=== PATIENT | male | born 1950 | race Caucasian/White ===

== ENCOUNTER 2021-05-15 08:10 | Inpatient (IN) ==
[2021-05-15] MEDS ORDERED: Heparin DRIP 25,000 UNITS BAG 25,000 UNITS/500 ML BAG ONE (08:31)
[2021-05-15] MEDS: Heparin DRIP 25,000 UNITS BAG 25,000 UNITS/500 ML BAG IV SCH (08:35)
[2021-05-15] MEDS ORDERED: Heparin 5000 UNITS/ML 1 mL VIAL IV SCH (09:00)
[2021-05-15 09:08] LABS: ABS Basophils 0.1 10^3/ul (0-0.2); ABS Lymphocytes 0.8 10^3/ul (1.0-4.8); ABS Monocytes 1.3 10^3/ul (0-0.8); ABS Neutrophils 9.1 10^3/ul (1.5-7.7); Eosinophil % 0.1 %; Hematocrit 37 % (42-52); Hemoglobin 12.4 g/dL (14.0-18.0); Lymphocyte % 7.3 %; Mean Corpuscular HGB Conc 33 g/dL (31-36); Mean Corpuscular Hemoglobin 29 pg (27-31); Mean Corpuscular Volume 86 fL (80-94); Mean Platelet Volume 7.4 fL (7.4-10.4); Platelet Count 232 10^3/uL (150-450); Red Cell Distribution Width 14 % (10-15); White Blood Count 11.3 10^3/uL (3.5-10.8)
[2021-05-15 09:23] LABS: Anion Gap 7 mmol/L (2-11); Blood Urea Nitrogen 19 mg/dL (6-24); CO2 Carbon Dioxide 24 mmol/L (22-32); Calcium 8.2 mg/dL (8.6-10.3); Chloride 101 mmol/L (101-111); EGFR African American 73.1 (>60); EGFR Non-African American 60.4 (>60); Glucose 134 mg/dL (70-100); Potassium 4.1 mmol/L (3.5-5.0); Sodium 132 mmol/L (135-145)
[2021-05-15 09:47] LABS: Activated Partial Thrombo Time 82.9 seconds (26.0-38.0); INR 1.35 (0.86-1.15)
[2021-05-15 09:52] LABS: Troponin I 0.01 ng/mL (<0.03)
[2021-05-15] MEDS ORDERED: Al Hydrox/Mg Hydrox/Simet LIQ 30 ML UDC PO PRN (10:15)
[2021-05-15] MEDS ORDERED: Ondansetron 4 mg VIAL 2 MG/ML 2 ml VIAL IV PRN (10:15)
[2021-05-15 10:16] LABS: C Reactive Protein 103.27 mg/L (<8.01)
[2021-05-15] MEDS ORDERED: Digoxin IV 0.5 MG/2 ML AMP (0.25 MG/ML) IV SLOW PU ONE (10:25)
[2021-05-15 11:25] LABS: TSH Ultra Thyroid Stim Horm 0.35 mcIU/mL (0.34-5.60)
[2021-05-15 12:50] LABS: Erythrocyte Sed Rate 25 mm/Hr (0-19)
[2021-05-15 13:28] LABS: % Iron Saturation 12 % (15-55); Iron 30 ug/dL (50-212); Total Iron Binding Capacity 248 mcg/dL (250-450); Transferrin 177 mg/dL (203-362); Unsaturated Iron Binding < 233 ug/dL
[2021-05-16 04:19] LABS: ABS Basophils 0.1 10^3/ul (0-0.2); ABS Eosinophils 0.2 10^3/ul (0-0.6); ABS Lymphocytes 1.1 10^3/ul (1.0-4.8); ABS Neutrophils 5.3 10^3/ul (1.5-7.7); Eosinophil % 2.8 %; Hematocrit 35 % (42-52); Lymphocyte % 13.9 %; Mean Corpuscular HGB Conc 34 g/dL (31-36); Mean Corpuscular Hemoglobin 29 pg (27-31); Mean Corpuscular Volume 85 fL (80-94); Mean Platelet Volume 7.3 fL (7.4-10.4); Platelet Count 217 10^3/uL (150-450); Red Blood Count 4.14 10^6 /uL (4.18-5.48); Red Cell Distribution Width 14 % (10-15); White Blood Count 7.6 10^3/uL (3.5-10.8)
[2021-05-16 04:40] LABS: Calcium 8.4 mg/dL (8.6-10.3); EGFR African American 78.4 (>60); EGFR Non-African American 64.8 (>60); Potassium 3.8 mmol/L (3.5-5.0)
[2021-05-16] MEDS: Heparin DRIP 25,000 UNITS BAG 25,000 UNITS/500 ML BAG IV SCH (04:42)
[2021-05-16] MEDS ORDERED: Potassium Chloride LIQUID 20 MEQ/15 ML LIQUID PO ONE (08:51)
[2021-05-16] MEDS ORDERED: Iron Sucrose 20 MG/ML 5 ML VIAL IV PUSH ONE (10:31)
[2021-05-16 13:28] VITALS: BP 124/72
== END 2021-05-16 17:16 | disposition home or self-care (01) | DRG 316 ==
LOC: ED 08:10 → SUATTDRO 10:10 → MEDTELE 10:10
PROVIDERS: ADMIT Internal Medicine; ATTEND Internal Medicine

== ENCOUNTER 2021-07-10 10:12 | Observation (INO) ==
[2021-07-10 11:47] LABS: ABS Basophils 0.1 10^3/ul (0-0.2); ABS Eosinophils 0.1 10^3/ul (0-0.6); ABS Lymphocytes 0.7 10^3/ul (1.0-4.8); ABS Neutrophils 7.2 10^3/ul (1.5-7.7); Eosinophil % 1.3 %; Hematocrit 42 % (42-52); Hemoglobin 14.3 g/dL (14.0-18.0); Lymphocyte % 7.9 %; Mean Corpuscular HGB Conc 34 g/dL (31-36); Mean Corpuscular Hemoglobin 29 pg (27-31); Mean Corpuscular Volume 85 fL (80-94); Mean Platelet Volume 7.5 fL (7.4-10.4); Platelet Count 222 10^3/uL (150-450); Red Blood Count 4.99 10^6 /uL (4.18-5.48); Red Cell Distribution Width 15 % (10-15); White Blood Count 9.2 10^3/uL (3.5-10.8)
[2021-07-10 11:55] LABS: INR 1.9 (0.86-1.15)
[2021-07-10 12:03] LABS: Albumin 3.9 g/dL (3.2-5.2); Albumin/Globulin Ratio 1.1 (1-3); Calcium 9.1 mg/dL (8.6-10.3); Globulin 3.4 g/dL (2-4); Magnesium 2.2 mg/dL (1.9-2.7); Potassium 3.7 mmol/L (3.5-5.0); Total Bilirubin 0.7 mg/dL (0.2-1.0); Total Protein 7.3 g/dL (6.4-8.9)
[2021-07-10] MEDS ORDERED: Al Hydrox/Mg Hydrox/Simet LIQ 30 ML UDC PO ONE (12:25)
[2021-07-10] MEDS ORDERED: NS 0.9% 1000 ml BAG 1,000 ML IV ONE (12:25)
[2021-07-10 12:28] LABS: Troponin I 0.02 ng/mL (<0.03)
[2021-07-10] MEDS ORDERED: Iohexol 350 (CONTRAST) 500 ML MDV IV ONE (13:28)
[2021-07-10 15:34] LABS: Rapid COVID-19 Molecular Undetected (Undetected)
[2021-07-10 15:35] LABS: Troponin I 0.03 ng/mL (<0.03)
[2021-07-10 18:48] LABS: Troponin I 0.04 ng/mL (<0.03)
[2021-07-10 22:38] LABS: Troponin I 0.05 ng/mL (<0.03)
[2021-07-11 02:36] LABS: Troponin I 0.04 ng/mL (<0.03)
[2021-07-11 06:08] LABS: ABS Basophils 0.1 10^3/ul (0-0.2); ABS Eosinophils 0.2 10^3/ul (0-0.6); ABS Lymphocytes 1.1 10^3/ul (1.0-4.8); ABS Monocytes 1.5 10^3/ul (0-0.8); ABS Neutrophils 7.5 10^3/ul (1.5-7.7); Eosinophil % 1.8 %; Hematocrit 41 % (42-52); Hemoglobin 13.5 g/dL (14.0-18.0); Lymphocyte % 10.5 %; Mean Corpuscular HGB Conc 33 g/dL (31-36); Mean Corpuscular Hemoglobin 28 pg (27-31); Mean Corpuscular Volume 85 fL (80-94); Mean Platelet Volume 7.1 fL (7.4-10.4); Platelet Count 236 10^3/uL (150-450); Red Cell Distribution Width 15 % (10-15); White Blood Count 10.3 10^3/uL (3.5-10.8)
[2021-07-11 06:26] LABS: Calcium 9.1 mg/dL (8.6-10.3); Potassium 4.1 mmol/L (3.5-5.0)
[2021-07-11] MEDS ORDERED: AMLODIPINE BENAZEPRIL PO SCH (21:00)
[2021-07-12 06:54] LABS: ABS Basophils 0.1 10^3/ul (0-0.2); ABS Eosinophils 0.3 10^3/ul (0-0.6); ABS Monocytes 1.2 10^3/ul (0-0.8); ABS Neutrophils 6.5 10^3/ul (1.5-7.7); Eosinophil % 3.2 %; Hematocrit 38 % (42-52); Hemoglobin 12.8 g/dL (14.0-18.0); Lymphocyte % 10.9 %; Mean Corpuscular HGB Conc 33 g/dL (31-36); Mean Corpuscular Hemoglobin 28 pg (27-31); Mean Corpuscular Volume 85 fL (80-94); Mean Platelet Volume 7.7 fL (7.4-10.4); Platelet Count 242 10^3/uL (150-450); Red Cell Distribution Width 15 % (10-15); White Blood Count 8.9 10^3/uL (3.5-10.8)
[2021-07-12] MEDS ORDERED: Perflutren Lipid Microsphere 3 ML VIAL ONE (10:07)
[2021-07-12] MEDS ORDERED: Aspirin EC 81 mg TAB.EC (enteric coated) PO SCH (11:00)
[2021-07-12 14:18] VITALS: BP 101/55
== END 2021-07-12 15:47 | disposition home or self-care (01) ==
LOC: MEDTELE 10:12 → ED 10:12 → SUATTDRO 21:46 → MEDTELE 22:17
PROVIDERS: ADMIT Internal Medicine; ATTEND Internal Medicine